=== PATIENT | male | born 1940 | race Caucasian/White ===

== ENCOUNTER → 2018-07-01 | Outpatient (CLI) | payer OTHER ==
[~2018-07-01] MED LIST: ASCO100033 PO; ASPI-1181 PO; ATOR10 PO; ENAL10TA PO; GABA-318 PO; HYDR25TA PO; LEVO500T2 PO; METF-526 PO; MULT-248 PO; TIMO5DRO43 OP
== END | disposition home or self-care (01) ==
LOC: SHCH 08:16
PROVIDERS: ATTEND Internal Medicine Cardiovascular Disease
DX: I35.8 Other nonrheumatic aortic valve disorders (principal); I10 Essential (primary) hypertension
CPT/HCPCS: 93306